=== PATIENT | female | born 2000 | race Caucasian/White ===

== ENCOUNTER → 2020-05-22 | Emergency (ER) | payer OTHER ==
[~2020-05-22] VITALS: Ht 162.6 cm; Wt 59.0 kg
[2020-05-22 12:38] VITALS: BP 126/87
== END | disposition home or self-care (01) ==
LOC: ER 12:00
DX: S56.012A Strain of flexor muscle, fascia and tendon of left thumb at forearm level, initial encounter (principal); J45.909 Unspecified asthma, uncomplicated; X58.XXXA Exposure to other specified factors, initial encounter; Y93.89 Activity, other specified; Y92.89 Other specified places as the place of occurrence of the external cause; Y99.8 Other external cause status
CPT/HCPCS: 29125; 73110; 73130; 81025

== ENCOUNTER 2020-06-14 08:31 | Emergency (ER) | payer MEDICAID, OTHER ==
[~2020-06-14] VITALS: Ht 162.6 cm; Wt 59.0 kg
[2020-06-14 09:06] VITALS: BP 125/80
[2020-06-14] MEDS ORDERED: METHOCARBAMOL 500 MG TAB PO ONE (09:45)
== END 2020-06-14 10:04 | disposition home or self-care (01) ==
LOC: ER 08:31
DX: M62.838 Other muscle spasm (principal); M54.2 Cervicalgia; J45.909 Unspecified asthma, uncomplicated

== ENCOUNTER 2021-06-15 15:49 | Emergency (ER) | payer MEDICAID ==
[~2021-06-15] VITALS: Ht 162.6 cm; Wt 59.0 kg
[2021-06-15 15:51] VITALS: BP 101/64
[2021-06-15] MEDS ORDERED: IBUPROFEN 600 MG TAB PO ONE (17:15)
== END 2021-06-15 17:50 | disposition home or self-care (01) ==
LOC: ER 15:49
DX: N39.0 Urinary tract infection, site not specified (principal); J45.909 Unspecified asthma, uncomplicated; F12.10 Cannabis abuse, uncomplicated; Z88.0 Allergy status to penicillin
CPT/HCPCS: 81002; 81025